=== PATIENT | male | born 1985 | race Caucasian/White ===

== ENCOUNTER → 2022-08-17 | Outpatient (CLI) | payer OTHER | END | disposition home or self-care (01) | LOC: RAH 12:05 | PROVIDERS: ATTEND Family Medicine | DX: I51.7 Cardiomegaly (principal); R00.2 Palpitations; E66.9 Obesity, unspecified | CPT/HCPCS: 93306 ==

== ENCOUNTER 2022-11-17 13:54 | Emergency (ER) | payer OTHER ==
[~2022-11-17] VITALS: Ht 175.3 cm; Wt 136.1 kg
[2022-11-17 14:03] VITALS: BP 156/100
[2022-11-17] MEDS ORDERED: AMOX500C2 PO (14:50)
== END 2022-11-17 14:56 | disposition home or self-care (01) ==
LOC: EDH 13:54
DX: J02.9 Acute pharyngitis, unspecified (principal); J32.9 Chronic sinusitis, unspecified; I10 Essential (primary) hypertension; Z20.822 Contact with and (suspected) exposure to COVID-19
CPT/HCPCS: 99283; 87635; 87880; 87804 ×2; C9803